=== PATIENT | male | born 1950 | race Caucasian/White ===

== ENCOUNTER 2018-08-31 07:04 | Day surgery (SDC) | payer BC ==
[~2018-08-31] VITALS: Ht 185.4 cm; Wt 70.5 kg
--- NOTE | ~2018-08-31 | OP ---
PATIENT NAME: ZEESHAN MERCHANT MEDICAL RECORD: [id number] :46 LOCATION:[facility] ADMISSION DATE: SURGEON: NITHIN ROBLES DO DATE OF OPERATION: 08/31/2018 PROCEDURE: Colonoscopy with cold forceps polypectomy. INDICATIONS FOR PROCEDURE: Unexplained weight loss and colorectal cancer screening. SCOPE: Olympus video pediatric colonoscope. MEDICATIONS: Propofol 280 mg IV per anesthesia. WITHDRAWAL TIME: 15 minutes. ESTIMATED BLOOD LOSS: Minimal. COMPLICATIONS: None. FINDINGS AND DESCRIPTION OF PROCEDURE: Informed consent was given. The patient was made comfortable with the above medication. After reaching an adequate level of sedation by slow IV push, the patient was placed on his left side. A digital rectal examination was performed and revealed some prostate hyperplasia. The endoscope was advanced under direct visualization through the rectum to the terminal ileum. The endoscope was slowly withdrawn and mucosa was carefully examined. The prep quality was fair. There was a single polyp visualized on today's examination. It was a benign appearing sessile polyp, which measured approximately 3-mm in diameter. It was located in the sigmoid colon and was removed using cold forceps in one piece. There was evidence of mild diverticulosis involving the sigmoid colon. Retroflexion was performed in the rectum with visualization of grade II internal hemorrhoids without active bleeding. The endoscope was withdrawn from the patient. The patient tolerated the procedure well and there were no complications. IMPRESSIONS: 1. A single benign-appearing polyp was removed from the sigmoid colon. 2. Mild diverticulosis of the sigmoid colon. 3. Grade II internal hemorrhoids without active bleeding. PLAN AND RECOMMENDATIONS: 1. Discharge home when recovery parameters are met. 2. Follow up biopsy specimen results. 3. High fiber diet. 4. Continue current medications. 5. Recall colonoscopy in 5 years. TRANSINT:[id number] Voice Confirmation ID: [id number] DOCUMENT ID: [id number] OPERATIVE REPORT [id number] ZEESHAN MERCHANT NITHIN ROBLES DO at 1012 CC: [id number] DICTATION DATE: 08/31/18 0949 OCCUPATIONAL THERAPIST AIDE: 08/31/18 1101 [facility] 08/31/18 [place] [address]
[2018-08-31 07:20] LABS: HEMATOCRIT 48.9 % (42.0-54.0); HEMOGLOBIN 16.8 g/dL (13.5-17.5); MCHC 34.4 g/dL (31.0-37.0); MCV 90.2 fL (80.0-100.0); MEAN PLATELET VOLUME 11.3 fL (7.4-10.4); RBC 5.42 10x6/uL (4.20-6.10); RDW 14.5 % (11.5-14.5)
[2018-08-31 07:29] LABS: CALC OSMOLALITY 284 mosm/kg (275-300); CALCIUM 9.4 mg/dL (8.5-10.1); CARBON DIOXIDE 22.8 mmol/L (21.0-32.0); CHLORIDE - SERUM 104 mmol/L (98-107); GLUCOSE 94 mg/dL (74-106); POTASSIUM - SERUM 4.7 mmol/L (3.5-5.1); SODIUM 142 mmol/L (136-145); UREA NITROGEN 18 mg/dL (7-18); eGFR NON AFRICAN AMERICAN 79 mL/min (90-120)
[2018-08-31] MEDS ORDERED: PRADAXA150 MG PO (08:03)
[2018-08-31] MEDS ORDERED: JANUVIA100 MG PO (08:04)
[2018-08-31] MEDS ORDERED: ECOTRIN325 MG (08:05)
[2018-08-31] MEDS ORDERED: GEMFIBROZIL600 MG PO (08:06)
[2018-08-31] MEDS ORDERED: GLUCOPHAGE500 MG PO (08:07)
[2018-08-31] MEDS ORDERED: LIPITOR20 MG PO (08:08)
[2018-08-31] MEDS ORDERED: ALDACTONE25 MG PO (08:08)
[2018-08-31] MEDS ORDERED: CARVEDILOL (08:09)
[2018-08-31] MEDS ORDERED: ENTRESTO 24 MG1 EACH PO (08:10)
[2018-08-31 08:23] VITALS: BP 111/56; Ht 185.4 cm; Wt 70.5 kg
== END 2018-08-31 10:39 | disposition home or self-care (01) ==
LOC: D.OPS 07:04
PROVIDERS: Anesthesiology
DX: K63.5 Polyp of colon (principal); K57.30 Diverticulosis of large intestine without perforation or abscess without bleeding; R63.4 Abnormal weight loss